=== PATIENT | female | born 1980 | race Caucasian/White ===

== ENCOUNTER 2019-11-15 08:08 | Outpatient (CLI) | payer BC, SELFPAY ==
[2019-11-15 08:26] LABS: Hematocrit 40.2 % (35.0-49.0); Hemoglobin 13.3 g/dL (12.0-15.0); Mean Corpuscular HGB Conc 33.1 g/dL (32.0-36.0); Mean Corpuscular Hemoglobin 29.5 pg (27.0-31.0); Mean Corpuscular Volume 89.1 fL (78.0-102.0); Mean Platelet Volume 10.9 fl (9.2-11.8); Platelet Count Result 307 K/mm3 (150-420); Red Blood Count 4.51 M/mm3 (4.20-5.40); Red Cell Distribution Width 12.7 % (11.6-14.4); White Blood Count 10.4 K/mm3 (4.8-10.8)
[2019-11-15 08:27] LABS: Add Urine Microscopic? YES; Appearance Urine Cloudy (Clear); Bilirubin Urine 1+ (Negative); Blood Urine Negative (Negative); Color Urine Yellow (Yellow); Glucose Urine UA Negative (Negative); Ketones Urine 1+ (Negative); Leukocyte Esterase Ur Negative (Negative); Nitrate Urine Negative (Negative); Protein Urine Negative (Negative); Specific Grav Ur >= 1.030 (1.010-1.020); Urobilinogen Urine 0.2 mg/dL (0.2-1.0); pH Urine 5.5 (5.0-8.0)
[2019-11-15 08:35] LABS: Hemoglobin A1C 5.5 % (<5.7)
[2019-11-15 08:36] LABS: RBC Urine 0-2 /hpf (0-2); Squamous Epithelial Cell Urine Many /hpf (Few); WBC Urine 0-3 /hpf (0-3)
[2019-11-15 08:37] LABS: Bacteria Urine 1+ /hpf
[2019-11-15 08:38] LABS: Mucus Urine Few /lpf
[2019-11-15 09:43] LABS: Alanine Aminotransferase 22 U/L (14-59); Albumin Level 4.4 g/dL (3.4-5.0); Alkaline Phosphatase 75 U/L (46-116); Anion Gap 16.1 mmol/L (7-16); Aspartate Amino Transferase 14 U/L (15-37); Bilirubin,Total 0.6 mg/dL (0.00-1.00); Blood Urea Nitrogen 11 mg/dL (7-18); Calcium 9.2 mg/dL (8.5-10.1); Carbon Dioxide 29 mmol/L (21-32); Chloride 102 mmol/L (98-108); Cholesterol 157 mg/dL (0-200); Estimated Glomerular Filt Rate > 60; Glucose 116 mg/dL (70-99); HDL Direct 46 mg/dL (40-60); LDL Cholesterol Calculated 95 mg/dL (<130); Osmolality Calculated 296 mOsm/kg (285-295); Potassium 4.1 mmol/L (3.5-5.1); Sodium 143 mmol/L (136-145); Thyroid Stimulating Hormone 2.96 uIU/mL (0.36-3.74); Total Protein 8.2 g/dL (6.4-8.2); Triglycerides 80 mg/dL (0-150)
== END 2019-11-15 08:09 | disposition home or self-care (01) ==
LOC: CHSLAB 08:11
PROVIDERS: PCP Family Medicine; Visit Provider Physician Assistant
DX: Z00.00 Encounter for general adult medical examination without abnormal findings (principal); E11.65 Type 2 diabetes mellitus with hyperglycemia
CPT/HCPCS: 36415; 80053; 80061; 81001; 83036; 84443; 85027

== ENCOUNTER → 2019-12-03 12:57 | Outpatient (CLI) | payer BC, SELFPAY ==
--- NOTE | ~2019-12-03 | MM_ITS ---
EXAMINATION: MM screening marah BI w cristopher HISTORY: Screening mammogram TECHNIQUE: Craniocaudal and mediolateral oblique 3-D tomosynthesis images were obtained and synthetic 2-D images were generated. CAD analysis was submitted and interpreted. COMPARISON: No prior mammogram is available for comparison at this institution. BREAST PARENCHYMAL COMPOSITION: The breasts are heterogeneously dense, which may obscure small masses . FINDINGS: There are breast asymmetries in both breasts which are obscured by dense fibroglandular tis archana. There are no suspicious calcifications. There are benign-appearing axillary lymph nodes. IMPRESSION: 1. Bilateral breast asymmetries. 2. Additional mammographic views and possible breast ultrasound are recommended. BI-RADS Category 0: Incomplete: Needs additional imaging evaluation. Reviewed, dictated and finalized at location A. TRE DIRECTOR IMPRESSION: 1. Bilateral breast asymmetries. 2. Additional mammographic views and possible breast ultrasound are recommended . BI-RADS Category 0: Incomplete: Needs additional imaging evaluation.
== END ==
PROVIDERS: PCP Family Medicine; Visit Provider Obstetrics & Gynecology
DX: Z12.31 Encounter for screening mammogram for malignant neoplasm of breast (principal); R92.8 Other abnormal and inconclusive findings on diagnostic imaging of breast
CPT/HCPCS: 77063; 77067

== ENCOUNTER 2019-12-24 07:49 | Outpatient (CLI) | payer BC, SELFPAY ==
--- NOTE | ~2019-12-24 | MMUS_ITS ---
EXAMINATION: MM diagnostic mammo BI, US breast BI complete HISTORY: Follow-up bilateral breast asymmetries TECHNIQUE: Additional 3-D tomosynthesis images of the breasts were performed and synthetic 2-D images were generated. CAD analysis was submitted and interpreted. High resolution bilateral breast ultraso und was performed. COMPARISON: 12/03/2019 FINDINGS: MAMMOGRAPHIC FINDINGS: The breasts are heterogenously dense, which may obscure small masses. There is a focal mass in the up per outer quadrant of the right breast posteriorly, most likely benign intramammary lymph node. There is focal asymmetry medially in the left breast on CC view. ULTRASOUND: Right breast ultrasound: There are multiple cysts of the right breast. At 2:00, 5 cm from the nipple there is a 7 mm intramamm luz maria lymph node. There is a cluster of microcysts 6:00, 3 cm from the nipple. At 10:00, 3 cm from the nipple there is a 4 x 4 x 4 mm hypoechoic mass with enhanced through transmission and antiparallel co nfiguration, likely a complicated cyst. At 10:00, 3 cm from the nipple, there is a 4 mm oval hypoecho ic mass, likely complicated cysts. At 11:00, 7.5 cm from the nipple, there is an oval circumscribed h ypoechoic mass with parallel orientation, no posterior features. Left breast ultrasound: There are multiple simple and complicated cysts of the left breast. At 2:00, 4 cm from the nipple, th ere is an oval circumscribed hypoechoic mass measuring 6 mm with enhanced through transmission, paral lel orientation, most likely complicated cysts. At 9:00, 8 cm from the nipple, there is a heterogeneo us mass measuring 5 mm with echogenic hilum, likely benign intramammary lymph node. IMPRESSION: 1. Probable benign bilateral breast masses. 2. Recommend 6 month follow-up diagnostic bilateral mammogram and ultrasound. BI-RADS category 3, probably benign findings. Reviewed, dictated and finalized at location A. IMPRESSION: 1. Probable benign bilateral breast masses. 2. Recommend 6 month follow-up diagnostic bilateral mammogram and ultrasound. BI-RADS category 3, probably benign findings.
== END 2019-12-24 07:50 ==
LOC: MICIMG 07:50
PROVIDERS: Visit Provider Obstetrics & Gynecology
DX: R92.8 Other abnormal and inconclusive findings on diagnostic imaging of breast (principal)
CPT/HCPCS: 76641; 77066

== ENCOUNTER 2020-05-22 07:57 | Outpatient (CLI) | payer BC, SELFPAY ==
[2020-05-22 08:10] LABS: Hematocrit 38.1 % (35.0-49.0); Hemoglobin 11.9 g/dL (12.0-15.0); Mean Corpuscular HGB Conc 31.2 g/dL (32.0-36.0); Mean Corpuscular Hemoglobin 27.2 pg (27.0-31.0); Mean Platelet Volume 10.4 fl (9.2-11.8); Platelet Count Result 274 K/mm3 (150-420); Red Blood Count 4.38 M/mm3 (4.20-5.40); Red Cell Distribution Width 15.1 % (11.6-14.4); White Blood Count 8.5 K/mm3 (4.8-10.8)
[2020-05-22 08:27] LABS: Hemoglobin A1C 6.1 % (<5.7)
[2020-05-22 09:43] LABS: Alanine Aminotransferase 17 U/L (14-59); Albumin Level 3.6 g/dL (3.4-5.0); Alkaline Phosphatase 80 U/L (46-116); Anion Gap 9 mmol/L (8-16); Aspartate Amino Transferase 17 U/L (15-37); Bilirubin,Total 0.6 mg/dL (0.00-1.00); Blood Urea Nitrogen 11 mg/dL (7-18); Calcium 8.5 mg/dL (8.5-10.1); Carbon Dioxide 26 mmol/L (21-32); Chloride 105 mmol/L (98-108); Estimated Glomerular Filt Rate > 60; Ferritin 8 ng/mL (8-252); Glucose 100 mg/dL (70-99); Iron 72 ug/dL (50-170); Osmolality Calculated 289 mOsm/kg (285-295); Percent Iron Saturation 16 % (12-57); Potassium 4.3 mmol/L (3.5-5.1); Sodium 140 mmol/L (136-145); Total Protein 7.3 g/dL (6.4-8.2)
== END 2020-05-22 07:58 | disposition home or self-care (01) ==
LOC: CHSLAB 08:00
PROVIDERS: PCP Family Medicine; Visit Provider Physician Assistant
DX: D64.9 Anemia, unspecified (principal); E11.9 Type 2 diabetes mellitus without complications
CPT/HCPCS: 36415; 80053; 82728; 83036; 83540; 83550; 85027

== ENCOUNTER → 2020-08-24 07:46 | Outpatient (CLI) | payer BC, SELFPAY ==
--- NOTE | ~2020-08-24 | MMUS_ITS ---
EXAMINATION: MM diagnostic marah BI w cristopher, US breast BI complete HISTORY: Six-month follow-up for probably benign bilateral breast masses TECHNIQUE: Craniocaudal, mediolateral, and mediolateral oblique 3-D tomosynthesis images of the yajaira ts were performed and synthetic 2-D images were generated. CAD analysis was submitted and interpreted . High resolution limited bilateral breast ultrasound was performed. COMPARISON: 12/24/2019, 12/03/2019 BREAST PARENCHYMAL COMPOSITION: The breasts are heterogeneously dense, which may obscure small masses . FINDINGS: MAMMOGRAPHIC FINDINGS: Right breast: There is a stable 5 mm mass in the posterior third of the upper outer quadrant of the b reast 8 cm from the nipple. No suspicious calcification or architectural distortion are identified. Left breast: There is a persistent asymmetry in the posterior third of the lower breast on the mediol ateral oblique view. No suspicious calcification or architectural distortion are identified. ULTRASOUND: Right breast: Multiple anechoic and hypoechoic right breast masses persist without suspicious interva l change. Left breast: There is an approximately 10 mm oval hypoechoic mass at the 10:30 location 6 cm from the nipple with no posterior features or internal vascularity which appears to correspond with the mass previously measured at the 12:00 location. IMPRESSION: 1. Probably benign left breast mass and benign-appearing right breast masses. 2. Recommend 6 month follow-up left diagnostic mammogram and ultrasound. BI-RADS category 3, probably benign findings. Reviewed, dictated and finalized at location A. ETT MACHINE OPERATOR HELPER IMPRESSION: 1. Probably benign left breast mass and benign-appearing right breast masses. 2. Recommend 6 month follow-up left diagnostic mammogram and ultrasound. BI-RADS category 3, probably benign findings.
== END ==
PROVIDERS: PCP Family Medicine; Visit Provider Obstetrics & Gynecology
DX: R92.8 Other abnormal and inconclusive findings on diagnostic imaging of breast (principal)
CPT/HCPCS: 76641; 77062; 77066; G0279

== ENCOUNTER → 2021-04-05 07:46 | Outpatient (CLI) | payer BC, SELFPAY ==
--- NOTE | ~2021-04-05 | MMUS_ITS ---
EXAMINATION: MM diagnostic marah BI w cristopher, US breast BI limited HISTORY: Follow-up breast masses TECHNIQUE: Additional 3-D tomosynthesis images of the breasts were performed and synthetic 2-D images were generated. CAD analysis was submitted and interpreted. High resolution moderate bilateral breas t ultrasound was performed. COMPARISON: Comparison to multiple prior studies sequentially, with oldest reviewed study dated 12/03. BREAST PARENCHYMAL COMPOSITION: The breasts are heterogenously dense, which may obscure small masses. FINDINGS: MAMMOGRAPHIC FINDINGS: There are no suspicious masses, calcifications or architectural distortion in either breast to sugges t malignancy. ULTRASOUND: Limited right breast ultrasound: At 2:00, 5 cm from the nipple, there is an 8 mm intramammary lymph n ode. At 2:00, 7 cm from the nipple there is a 3 mm cyst. Limited left breast ultrasound: At 2:00, 4 cm from the nipple there is a 5 mm oval hypoechoic mass wi thout significant change from prior examination, likely benign. At 3:00, 3 cm from the nipple, there is a 9 mm cyst. At 6:00, 5 cm from the nipple there is a 6 mm cyst. IMPRESSION: 1. Probable benign left breast mass at 2:00, 4 cm from the nipple. There are additional scattered jones ign breast masses. No mammographic evidence for malignancy. 2. Recommend 6 month follow-up targeted left breast ultrasound BI-RADS category 3, probably benign findings. Reviewed, dictated and finalized at location A. IMPRESSION: 1. Probable benign left breast mass at 2:00, 4 cm from the nipple. There are ad ditional scattered benign breast masses. No mammographic evidence for malignanc y. 2. Recommend 6 month follow-up targeted left breast ultrasound BI-RADS category 3, probably benign findings.
== END ==
PROVIDERS: PCP Family Medicine; Visit Provider Obstetrics & Gynecology
DX: R92.8 Other abnormal and inconclusive findings on diagnostic imaging of breast (principal)
CPT/HCPCS: 76642; 77062; 77066; G0279

== ENCOUNTER → 2021-11-03 08:43 | Outpatient (CLI) | payer BC, SELFPAY ==
--- NOTE | ~2021-11-03 | US_ITS ---
EXAMINATION: US breast LT limited HISTORY: Six-month follow-up for probably benign left breast mass TECHNIQUE: Limited left breast ultrasound is performed. COMPARISON: 04/05/2021, 08/24/2020, 12/24/2019 FINDINGS: There is a 7 mm x 6 mm oval, circumscribed, parallel, hypoechoic mass with no posterior fea tures or internal vascularity at the 2:00 location 4 cm from the nipple which demonstrates nearly 2 y ears of sonographic stability. No suspicious cystic or solid mass is identified. IMPRESSION: Benign left breast mass. Routine screening mammography is recommended. BI-RADS Category 2: Benign finding(s). Reviewed, dictated and finalized at location A. CAL ARTIST
== END ==
PROVIDERS: Visit Provider Obstetrics & Gynecology
DX: R92.8 Other abnormal and inconclusive findings on diagnostic imaging of breast (principal); N63.21 Unspecified lump in the left breast, upper outer quadrant
CPT/HCPCS: 76642

== ENCOUNTER 2025-05-05 10:33 | Outpatient (CLI) | payer OTHER, SELFPAY ==
--- NOTE | ~2025-05-05 | XR_ITS ---
XR abdomen/kub 1V 05/05/2025 11:11 INDICATION: Unspecified abdominal pain TECHNIQUE: KUB COMPARISON: None FINDINGS: Bowel gas pattern is normal. There is no evidence of free air, mass, organomegaly, ascites or obstruction. The bones appear intact. There is a calcification in the lower pole of the left kidn ey, consistent with renal stone. There are cholecystectomy clips. There is an IUD in the pelvis. IMPRESSION: 1: Left nephrolithiasis. Reviewed, dictated and finalized at location B. IMPRESSION: 1: Left nephrolithiasis.
== END 2025-05-05 10:34 | disposition home or self-care (01) ==
PROVIDERS: PCP Family Medicine; Visit Provider Physician Assistant
DX: N20.0 Calculus of kidney (principal)
CPT/HCPCS: 74018

== ENCOUNTER 2025-05-07 09:40 | Outpatient (CLI) | payer OTHER, SELFPAY ==
--- NOTE | ~2025-05-07 | CT_ITS ---
CLINICAL INDICATION: Bilateral flank pain and suprapubic pain COMPARISON: None. TECHNIQUE: Multiple contiguous axial images of the abdomen and pelvis were performed without the admi nistration of intravenous contrast The dose-length product (DLP) was 535.12 mGy-cm. Automated exposure control and iterative reconstruction technique were employed. FINDINGS/OBSERVATIONS: Visualized lower thorax: The bilateral lung bases are clear. The heart is of normal size, without pericardial effusion. Small hiatal hernia is present. Liver: The liver demonstrates homogeneous attenuation and is enlarged measuring 20 cm in longitudinal dimens ion. Gallbladder and biliary system: The gallbladder is surgically absent. Pancreas: Limited evaluation of the pancreas secondary to the lack of intravenous contrast. Spleen: The spleen demonstrates homogeneous attenuation and is not enlarged. Kidneys: 9.5 mm nonobstructing stone within the lower pole of the left kidney. The remainder of the bilateral kidneys are otherwise unremarkable, without hydronephrosis or addition al renal calculi. Adrenal glands: Unremarkable. Gastrointestinal tract: Fecal stasis within the colon. Rectosigmoid diverticulosis without surrounding inflammatory change Appendix: The air-filled appendix is of normal caliber (axial series, images 79 through 86). Vasculature: Unremarkable. Lymph nodes: Limited evaluation without intravenous contrast. Pelvic structures: The bladder is only minimally distended, and otherwise unremarkable. The uterus is anteverted and anteflexed, and otherwise unremarkable. Asymmetric enlargement of the left ovary which contains a fluid attenuation (likely) cyst measuring 3 .3 x 3.7 x 3.2 cm. Body wall and musculoskeletal: No significant degenerative disease within the lower thoracic or lumbosacral spine. IMPRESSION: Nonobstructing 9.5 mm stone within the left kidney. Asymmetric enlargement of the left ovary which contains a fluid-filled (likely) cyst measuring 3.7 cm in greatest dimension. Hepatomegaly Reviewed, dictated and finalized at location A.
== END 2025-05-07 09:41 | disposition home or self-care (01) ==
LOC: MICIMG 09:41
PROVIDERS: PCP Family Medicine; Visit Provider Physician Assistant
DX: N20.0 Calculus of kidney (principal); M54.9 Dorsalgia, unspecified; R10.2 Pelvic and perineal pain; R16.0 Hepatomegaly, not elsewhere classified
CPT/HCPCS: 74176

== ENCOUNTER 2025-06-22 07:35 | Outpatient (CLI) | payer OTHER, SELFPAY ==
[2025-06-22 08:08] LABS: Hematocrit 42.2 % (37.0-47.0); Hemoglobin 13.7 g/dL (12.0-15.0); Mean Corpuscular HGB Conc 32.5 g/dl (32-36); Mean Corpuscular Hemoglobin 29.6 pg (26-34); Mean Corpuscular Volume 91.1 fl (80-100); Platelet Count Result 260 k/mm3 (150-375); Red Blood Count 4.63 M/mm3 (4.2-5.4); White Blood Count 8.7 K/mm3 (4.5-10.0)
[2025-06-22 08:17] LABS: Add Urine Microscopic? YES; Appearance Urine Clear (Clear); Glucose Urine UA 1+ mg/dL (Negative); Leukocyte Esterase Ur Trace LEU/UL (Negative); Nitrate Urine Negative (Negative); Specific Grav Ur 1.025 (1.001-1.035)
[2025-06-22 08:29] LABS: Iron 72 ug/dL (37-170)
[2025-06-22 08:31] LABS: Alanine Aminotransferase 60 U/L (6-35); Albumin Level 4.2 g/dL (3.5-5.1); Alkaline Phosphatase 103 U/L (38-126); Anion Gap 10 mmol/L (4-12); Aspartate Amino Transferase 44 U/L (14-36); Bilirubin,Total 0.7 mg/dL (0.2-1.3); Blood Urea Nitrogen 11 mg/dL (7-17); Calcium 9.1 mg/dL (8.4-10.2); Carbon Dioxide 24 mmol/L (22-30); Chloride 102 mmol/L (98-107); Cholesterol 222 mg/dL (0-200); Estimated Glomerular Filt Rate > 60; Glucose 222 mg/dL (65-110); HDL Direct 38 mg/dL; Potassium 4.1 mmol/L (3.4-5.0); Sodium 136 mmol/L (137-145); Total Protein 7.8 g/dL (6.3-8.2); Triglycerides 301 mg/dL (<150)
[2025-06-22 08:38] LABS: Percent Iron Saturation 19 % (20-50)
[2025-06-22 08:59] LABS: MALB Creatinine Ratio 12.2 mg/g (0-30)
[2025-06-22 09:00] LABS: Hemoglobin A1C 7.2 % (<5.7)
[2025-06-22 09:06] LABS: Thyroid Stimulating Hormone 3.020 uIU/mL (0.465-4.680)
[2025-06-22 09:10] LABS: Ferritin 55.40 ng/mL (6.24-137)
== END 2025-06-22 07:36 | disposition home or self-care (01) ==
LOC: ANHLAB 07:36
PROVIDERS: PCP Family Medicine; Visit Provider Physician Assistant
DX: E11.9 Type 2 diabetes mellitus without complications (principal); D64.9 Anemia, unspecified; E78.5 Hyperlipidemia, unspecified; Z00.00 Encounter for general adult medical examination without abnormal findings
CPT/HCPCS: 36415; 80053; 80061; 81001; 82043; 82728; 83036; 83540; 83550; 84443; 85027

== ENCOUNTER 2025-06-29 15:26 | Outpatient (CLI) | payer OTHER, SELFPAY ==
--- NOTE | ~2025-06-29 | XR_ITS ---
Abdominal radiograph(s) INDICATION: Kidney stone COMPARISON: CT abdomen and pelvis 05/07/2025 TECHNIQUE: 2 view supine abdomen FINDINGS: 6 mm stone left kidney lower pole. No other nephroureteral calculi. IUD. Scattered colonic stool. Small bowel loops not well seen. No acute bony abnormality. IMPRESSION: 1. 6 mm stone left kidney. Reviewed, dictated and finalized at location R. IMPRESSION: 1. 6 mm stone left kidney.
== END 2025-06-29 15:27 | disposition home or self-care (01) ==
LOC: MICIMG 15:29
PROVIDERS: PCP Family Medicine; Visit Provider Urology
DX: N20.0 Calculus of kidney (principal)
CPT/HCPCS: 74018

== ENCOUNTER 2025-08-03 15:43 | Outpatient (CLI) | payer OTHER, SELFPAY ==
[2025-08-03 16:22] LABS: Alanine Aminotransferase 39 U/L (6-35); Albumin Level 4.2 g/dL (3.5-5.1); Alkaline Phosphatase 83 U/L (38-126); Anion Gap 8 mmol/L (4-12); Aspartate Amino Transferase 27 U/L (14-36); Bilirubin,Total 0.6 mg/dL (0.2-1.3); Blood Urea Nitrogen 11 mg/dL (7-17); Calcium 9.4 mg/dL (8.4-10.2); Carbon Dioxide 23 mmol/L (22-30); Chloride 103 mmol/L (98-107); Estimated Glomerular Filt Rate > 60; Glucose 212 mg/dL (65-110); Potassium 4.0 mmol/L (3.4-5.0); Sodium 134 mmol/L (137-145); Total Protein 7.5 g/dL (6.3-8.2)
--- OUTSIDE RECORDS SUMMARY | 2025-08-03 17:03 | XMS_ITS | Clinical Summary ---
Author Organization [facility] Address [address] [place] [id number] Care Team Providers Care Toe Trimmer Name Role Phone Tk Deluca MD Primary Care Provider [phone] Allergies No known active allergies Medications dulaglutide (TRULICITY) 0.75 MG/0.5ML injection Inject 0.75 mg into the skin once a week. Takes on Sunday Active HYDROcodone-chayo taminophen (NORCO) 5-325 MG tabletIndicatio ns:Acute Pain < 7 Day Supply Take 1 tablet by mouth every 6 (six) hours as needed. Indications: Acute Pain < 7 Day Supply 15 tablet 5 Active tamsulosin (FLOMAX) 0.4 MG Cap Take 1 capsule (0.4 mg total) by mouth nightly at bedtime. 30 capsule 5 Active Active Problems No known active problems Encounters Date Type Department Care Team Description 06/04/2025 12:31 PM CDT Anesthesia Event [facility] [place] [address] Jayro Hollins MD Jarvis, Brittany L, CNP 06/04/2025 12:30 PM CDT - 06/04/2025 1:48 PM CDT Surgery [facility] [place] [address] Maynor Anaya MD LEFT RENAL EXTRACOROPOREAL SHOCK WAVE LITHOTRIPSY 06/04/2025 10:28 AM CDT - 06/04/2025 2:35 PM CDT Hospital Encounter [facility] [place] [address] Maynor Anaya MD Discharge Disposition: Home or Self Care (Routine Discharge) 06/04/2025 Travel 06/01/2025 8:55 AM CDT - 06/01/2025 11:59 PM CDT Hospital Encounter [facility] [place] [address] Maynor Anaya MD Discharge Disposition: Home or Self Care (Routine Discharge) 06/01/2025 Travel 05/28/2025 Prep for Procedure [facility] [place] [address] Maynor Anaya MD 05/28/2025 Prep for Procedure [facility] [place] [place] [address] Maynor Anaya MD 05/28/2025 Travel from Last 3 Months Social History Tobacco Use Types Packs/Day Years Used Date Smoking Tobacco: Never Smokeless Tobacco: Never Tobacco Cessation:Counseling Given: Not Answered Alcohol Use Standard Drinks/Week Comments Not Currently 0 (1 standard drink = 0.6 oz pur e alcohol) socially Comments No Sex and Gender Information Value Date Recorded Sex Assigned at Female 06/01/2025 9:03 AM CDT Legal Sex Female 7:25 PM CDT Gender Identity Not on file Sexual Orientation Not on file Last Filed Vital Signs Vital Sign Reading Time Taken Comments Blood Pressure 121/85 06/04/2025 2:20 PM CDT Pulse 90 06/04/2025 2:20 PM CDT Temperature 36.1 C (97 F) 06/04/2025 2:20 PM CDT Respiratory Rate 18 06/04/2025 2:20 PM CDT Oxygen Saturation 100% 06/04/2025 2:20 PM CDT Inhaled Oxygen Concentration - - Weight 78.1 kg (172 lb 2.9 oz) 06/04/2025 11:00 AM CDT Height 162.6 cm (5' 4) 06/04/2025 11:00 AM CDT Body Mass Index 29.55 06/04/2025 11:00 AM CDT Plan of Treatment Health Maintenance Due Date Last Done Comments Cervical Cancer Screening Pa p Smear (Age 30 to 64) Every 3 Years 1978 Colorectal Cancer Screening Colonoscopy (10 Years) 1978 Annual Physical 1981 Hepatitis C 1996 DTaP, Tdap and Td Vaccines ( 1 - Tdap) 1997 Hepatitis B Vaccines (1 of 3 - 19+ 3-dose series) 1997 Cervical Cancer Screening Pa p with HPV Testing (Age 30 to 64) Every 5 Years 2008 Cervical Cancer Screening with HPV 2008 Mammogram Screening 2018 COVID-19 Vaccine (2024-2 6 season) 2025 Influenza Adult (#1) 2025 Hepatitis A Vaccines Aged Out No long er eligible based on patient's age to complete this topic Meningococcal B Vaccine Aged Out No l onger eligible based on patient's age to complete this topic Meningococcal Vaccine Aged Out No marion maribell eligible based on patient's age to complete this topic Pneumococcal Vaccine: Pediat rics (0 to 5 Years) and At-Risk Patients (6 to 49 Years) Aged Out No longer eligible b ased on patient's age to complete this topic RSV Immunizations Under 20 Months Aged Out No longer eligible based on patient's age to complete this topic Procedures Procedure Name Priority Date/Time Associated Diagnosis Comments POCT GLUCOSE - DOCKED DEVICE Routine 06/04/2025 1:24 PM CDT FRAGMENTING OF KIDNEY STONE 06/04/2025 12:30 PM CDT KIDNEY STONE, INCOMPLETE BLADDER EMPTYING N20.0, R33.9 Case Notes SCHED BY FAX 05/21/2025 [facility] PHONE ASSESS Special Needs PER FAX ORDER, NEEDS 30 MINUTES POCT GLUCOSE - DOCKED DEVICE Routine 06/04/2025 11:21 AM CDT XR ABD KUB Routine 06/04/2025 11:08 AM CDT Kidney stone POCT URINE (BACK OFFICE) Routine 06/04/2025 10:50 AM CDT Preop examination URINE BACTERIA CULTURE Routine 06/01/2025 9:18 AM CDT Kidney stone Retention of urine from Last 3 Months Results * (ABNORMAL) POCT glucose (06/04/2025 1:24 PM CDT) Only the most recent of2 resultswithin the time period is included. GLUCOSE POC 154(H) 70 - 99 mg/dL 06/04/2025 1:27 PM CDT [facility] 06/04/2025 1:24 PM CDT Maynor Anaya MD POCT ORDERABLES - DEVIC E Final Result [facility] [address] [place] [address], * XR ABD KUB (06/04/2025 11:08 AM CDT) Anatomical Region Laterality Modality Abdomen Radiographic Tiffani ging 06/04/2025 2:41 PM CDT Impressions 06/04/2025 2:49 PM CDT IMPRESSION: 6 mm density projecting over the lower pole left kidney could be a renal calcification. Correlate with any prior exams. Ordered By: MAYNOR ANAYA Interpreted By: Samy North, 06/04/2025 2:41 PM Narrative 06/04/2025 2:49 PM CDT [facility] [address] [place], [place] [address] IMAGING STUDIES: XR ABD KUB DATE: 06/04/2025 11:08 AM HISTORY: pre-op exam (kidney stone) 44-year-old female. Preoperative evaluation. Planned ESWL of left kidney stone. COMPARISON: None at this institution. DISCUSSION: Supine view of the abdomen and pelvis on 2 images. On the image of the lower abdomen and pelvis, approximately 6 mm density projecting over the lower pole left kidney at the level of the L3 transverse process (not clearly visualized on image of the upper to mid abdomen). Cholecystectomy clips. T-shaped intrauterine device. Nonobstructive bowel gas pattern. Mild to moderate stool in the colon with greatest volume in the cecum. No acute skeletal abnormality. Procedure Note Samy North MD - 06/04/[address] [address] IMAGING STUDIES: XR ABD KUBDATE: 06/04/2025 11:08 AM HISTORY: pre-op exam (kidney stone) 44-year-old female. Preoperativeevaluation. Planned ESWL of left kidney stone. COMPARISON: None at this institution. DISCUSSION: Supine view of the abdomen and pelvis on 2 images. On the image of the lower abdomen and pelvis, approximately 6 mm densityprojecting over the lower pole left kidney at the level of the [id number] process (not clearly visualized on image of the upper to midabdomen). Cholecystectomy clips. T-shaped intrauterine device. Nonobstructive bowel gas pattern. Mild to moderate stool in the colon withgreatest volume in the cecum. No acute skeletal abnormality. IMPRESSION: 6 mm density projecting over the lower pole left kidney could be a renalcalcification. Correlate with any prior exams. Ordered By: MAYNOR ANAYA Interpreted By: Samy North, 06/04/2025 2:41 PM us Maynor Anaya MD GENERAL IMAGING Final R esult * (ABNORMAL) POCT urine (06/04/2025 10:50 AM CDT) URINE HCG TEST NEGATIVE(A ) NEGATIVE [facility] Comment:LOT: [id number]; EXP : 2026-10-29 Internal Control: VALID VALID [facility] 06/04/2025 10:5 0 AM CDT Dariana Hooper CNP POINT OF CARE TEST ORDERAB LES Final Result Performing Organization Address City/[facility] Co de Phone Number [facility] [address] [place] [phone], * URINE BACTERIA CULTURE (06/01/2025 9:18 AM CDT) SPEC DESCRIPTION URINE CLEAN CATCH 06/01/2025 9:18 AM CDT [facility] SPECIAL REQUESTS NO SPECIAL REQUEST 06/01/2025 9:18 AM CDT [facility] CULTURE RESULT POLYMICROBIAL GROWTH CONSISTENT WITH NORMAL GENITAL VERONICA. SUSCEPTIBILITIES NOT ROUTINELY PERFORMED. 06/02/2025 8:25 AM CDT [facility] URINE SPECIMEN OBTAINED BY CLEAN CATCH PROCEDURE / Unknown 06/01/2025 9:18 AM CDT 06/01/2025 9:19 AM CDT Maynor Anaya MD MICROBIOLOGY - GENERAL ORDERABLES Final Result Performing Organization Address City/[facility] Co de Phone Number [facility] [address] [place] [address], from Last 3 Months Insurance [employer] Care Teams Toe Trimmer Relationship Specialty Start Date End Date Tk Deluca MD [address] [place] [address] PCP - General FAMILY PRACTICE 11/27/20
== END 2025-08-03 15:44 | disposition home or self-care (01) ==
LOC: ANHLAB 15:45
PROVIDERS: PCP Family Medicine; Visit Provider Physician Assistant Medical
DX: R79.89 Other specified abnormal findings of blood chemistry (principal)
CPT/HCPCS: 36415; 80053